=== PATIENT | female | born 1970 | race Caucasian/White ===

== ENCOUNTER 2017-01-20 08:15 | Emergency (ER) | payer MEDICAID ==
--- NOTE | 2017-01-20 08:39 | EDM.PDOC ---
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 Patient had a cold last week and noted having facial pain 2 days ago and nasal drainage that is purulent and intermittently bloody. she frequently gets sinusitis secondary to URIs. She denies any fevers, chills, shortness of breath or difficulty swallowing. Review of systems: As per history of present illness and below otherwise all systems reviewed and negative. Past medical history: As per history of present illness and as reviewed below otherwise noncontributory. Surgical history: As per history of present illness and as reviewed below otherwise noncontributory. Social history: No reported history of drug or alcohol abuse. Family history: As per history of present illness and as reviewed below otherwise noncontributory. Physical exam: General: Well developed, well nourished in NAD HEENT: Atraumatic, normocephalic, pupils reactive, negative for conjunctival pallor or scleral icterus, mucous membranes moist, throat clear, neck supple, nontender, trachea midline. Lungs: Clear to auscultation, breath sounds equal bilaterally, chest nontender. Heart: S1S2, regular, negative for clicks, rubs, or JVD. Abdomen: Soft, nondistended, nontender. Negative for masses or hepatosplenomegaly. Negative for costovertebral tenderness. Pelvis: Stable nontender. Genitourinary: Deferred. Rectal: Deferred. Extremities: Atraumatic, negative for cords or calf pain. Neurovascular unremarkable. Neuro: Awake, alert, oriented. Cranial nerves II through XII unremarkable. Cerebellum unremarkable. Motor and sensory unremarkable throughout. Exam nonfocal. Diagnostics: [] Therapeutics: [] Toradol given in the ED, first dose of Zithromax as pharmacies are closed today and first dose of prednisone given Impression: [] Acute sinusitis Plan: [] Motrin for pain, Zithromax one a day for 4 more days starting tomorrow and Medrol Dosepak instructed. Definitive disposition and diagnosis as appropriate pending reevaluation and review of above. - Related Data Allergies/ADRs: Allergies Allergy/AdvReac Type Severity Reaction Status Date / Time Iodinated Contrast Media - Allergy Anaphylactic Verified 06/25/16 14:55 Oral and Shock [Iodinated Contrast Media - IV Dye] iodine Allergy Anaphylactic Verified 06/25/16 14:55 Shock Iodine and Iodide Containing Allergy Anaphylactic Verified 06/25/16 14:55 Produc Shock Penicillins Allergy Anaphylactic Verified 06/25/16 14:55 Shock Sulfa (Sulfonamide Allergy Anaphylactic Verified 06/25/16 14:55 Antibiotics) Shock tetracycline [Tetracycline] Allergy Nausea and Verified 06/25/16 14:55 Vomiting Home Meds: Home Meds ClonazePAM [KlonoPIN] 1 mg PO TID 01/13/16 [History] Diltiazem HCl [Diltiazem 24Hr ER] 300 mg PO DAILY 05/20/16 [History] Azithromycin [Zithromax] 250 mg PO DAILY #4 tablet 01/20/17 [Rx] Fluticasone Propionate [Flonase] 1 spray NASBOTH DAILY 01/20/17 [History] methylPREDNISolone [Medrol] 4 mg PO ASDIRECTED #1 dosepk 01/20/17 [Rx] Past Medical History HEENT History: Reports: None Cardiovascular History: Reports: Hypertension, Other (see below) Other Cardiovascular History: svt Respiratory History: Reports: Asthma Gastrointestinal History: Reports: None Genitourinary History: Reports: None 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: Musculoskeletal History: Reports: None Neurological History: Reports: Seizure Psychiatric History: Reports: PTSD, Other (see below) Other Psychiatric History: history of alcoholism Endocrine/Metabolic History: Reports: None Hematologic History: Reports: None Immunologic History: Reports: None Oncologic (Cancer) History: Reports: Bone, Other (see below) 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 Dermatologic History: Reports: None - Infectious Disease History Infectious Disease History: Reports: Chicken pox - Past Surgical History Head Surgeries/Procedures: Reports: None HEENT Surgical History: Reports: Other (see below) Other HEENT Surgeries/Procedures: cancer to jaw Musculoskeletal Surgical History: Reports: Other (see below) Other Musculoskeletal Surgeries/Procedures:: Jaw dissection r/t jaw CA Social & Family History - Family History Family Medical History: Noncontributory - Tobacco Use Smoking Status *Q: Never Smoker Years of Tobacco use: 5 Used Tobacco, but Quit: No Second Hand Smoke Exposure: No - Caffeine Use Caffeine Use: Reports: Coffee, Soda - Alcohol Use Days Per Week of Alcohol Use: 7 Number of Drinks Per Day: 5 Total Drinks Per Week: 35 - Recreational Drug Use Recreational Drug Use: No Drug Use in Last 12 Months: No Recreational Drug Type: Reports: Cocaine, Methamphetamine ED ROS ENT - Review of Systems Review Of Systems: See Below (See history of present illness) ED EXAM, ENT - Physical Exam Exam: See Below (See history of present illness) Course - Vital Signs Last Recorded V/S: Last Vital Signs Temp 36.6 C 01/20/17 09:09 Pulse 77 01/20/17 09:09 Resp 16 01/20/17 09:09 BP 134/82 01/20/17 09:09 Pulse Ox 99 01/20/17 09:09 - Orders/Labs/Meds Meds: Medications Discontinued Medications Generic Name Dose Route Start Last Admin Trade Name Freq PRN Reason Stop Dose Admin Azithromycin 500 mg 01/20/17 08:48 01/20/17 09:05 Zithromax PO 01/20/17 08:49 500 mg ONETIME ONE Administration Ketorolac Tromethamine 30 mg 01/20/17 08:47 01/20/17 09:05 Toradol IM 01/20/17 08:48 30 mg ONETIME ONE Administration Prednisone 60 mg 01/20/17 08:47 01/20/17 09:05 Prednisone PO 01/20/17 08:48 60 mg ONETIME ONE Administration Departure - Departure Time of Disposition: 08:54 Disposition: Home, Self-Care 01 Condition: good Clinical Impression: Acute sinusitis Qualifiers: Sinusitis location: maxillary Recurrence: recurrent Qualified Code(s): J01.01 - Acute recurrent maxillary sinusitis Prescriptions: Azithromycin [Zithromax] 250 mg PO DAILY #4 tablet methylPREDNISolone [Medrol] 4 mg PO ASDIRECTED #1 dosepk Instructions: Sinusitis, Adult, [id number] Referrals: Justice Curtis MD [Primary Care Provider] - Forms: ED Department Discharge Additional Instructions: The following information is given to patients seen in the emergency department who are being discharged to home. This information is to outline your options for follow-up care. We provide all patients seen in our emergency department with a follow-up referral. The need for follow-up, as well as the timing and circumstances, are variable depending upon the specifics of your emergency department visit. If you don't have a primary care physician on staff, we will provide you with a referral. We always advise you to contact your personal physician following an emergency department visit to inform them of the circumstance of the visit and for follow-up with them and/or the need for any referrals to a consulting specialist. The emergency department will also refer you to a specialist when appropriate. This referral assures that you have the opportunity for follow-up care with a specialist. All of these measure are taken in an effort to provide you with optimal care, which includes your follow-up. Under all circumstances we always encourage you to contact your private physician who remains a resource for coordinating your care. When calling for follow-up care, please make the office aware that this follow-up is from your recent emergency room visit. If for any reason you are refused follow-up, please contact the [facility] Emergency Department at and asked to speak to the emergency department charge nurse. Amarjit Evans Motrin as directed. Followup with Dr. Sutton [facility] ENT [address] [place] [id number]
[2017-01-20] MEDS ORDERED: Ketorolac 30 MG/ML SDV IM ONE (08:47)
[2017-01-20] MEDS ORDERED: predniSONE 20 MG Tab PO ONE (08:47)
[2017-01-20] MEDS ORDERED: Azithromycin 250 MG Tab PO ONE (08:48)
[2017-01-20 09:10] VITALS: BP 134/82
== END 2017-01-20 09:21 | disposition home or self-care (01) ==
LOC: MW.ED 08:15
DX: J01.01 Acute recurrent maxillary sinusitis (principal); I10 Essential (primary) hypertension; J45.909 Unspecified asthma, uncomplicated; Z88.0 Allergy status to penicillin; Z88.2 Allergy status to sulfonamides; Z88.8 Allergy status to other drugs, medicaments and biological substances; Z79.899 Other long term (current) drug therapy; Z91.041 Radiographic dye allergy status
CPT/HCPCS: 96372; 99282; A9270; J1885; 99283

== ENCOUNTER 2017-04-12 05:45 | Emergency (ER) | payer MEDICAID ==
--- NOTE | 2017-04-12 06:00 | EDM.PDOC ---
ED HPI GENERAL MEDICAL PROBLEM - General Chief Complaint: Respiratory Problem Stated Complaint: LINGERING DEEP COUGH AND COLD Time Seen by Provider: 04/12/17 05:57 - History of Present Illness INITIAL COMMENTS - FREE TEXT/NARRATIVE: HISTORY AND PHYSICAL: History of present illness: Patient is 46-year-old female presents with a concern of cough she states she had cold symptoms were last week or 2 and if her cough is gone somewhat progressively worse is been no fever chills nausea vomiting or other complaints her children have had a similar illness recently Review of systems: As per history of present illness and below otherwise all systems reviewed and negative. Past medical history: As per history of present illness and as reviewed below otherwise noncontributory. Surgical history: As per history of present illness and as reviewed below otherwise noncontributory. Social history: No reported history of drug or alcohol abuse. Family history: As per history of present illness and as reviewed below otherwise noncontributory. Physical exam: HEENT: Atraumatic, normocephalic, pupils reactive, negative for conjunctival pallor or scleral icterus, mucous membranes moist, throat clear, neck supple, nontender, trachea midline. Lungs: Clear to auscultation, breath sounds equal bilaterally, chest nontender. Heart: S1S2, regular, negative for clicks, rubs, or JVD. Abdomen: Soft, nondistended, nontender. Negative for masses or hepatosplenomegaly. Negative for costovertebral tenderness. Pelvis: Stable nontender. Genitourinary: Deferred. Rectal: Deferred. Extremities: Atraumatic, negative for cords or calf pain. Neurovascular unremarkable. Neuro: Awake, alert, oriented. Cranial nerves II through XII unremarkable. Cerebellum unremarkable. Motor and sensory unremarkable throughout. Exam nonfocal. Diagnostics: Chest x-ray CBC CMP Therapeutics: None Impression: #1 pneumonitis Definitive disposition and diagnosis as appropriate pending reevaluation and review of above. throat Pain Score (Numeric/FACES): 5 - Related Data Allergies Allergy/AdvReac Type Severity Reaction Status Date / Time Iodinated Contrast- Oral and Allergy Anaphylactic Verified 04/12/17 05:51 IV Dye Shock [Iodinated Contrast Media - IV Dye] iodine Allergy Anaphylactic Verified 04/12/17 05:51 Shock Iodine and Iodide Containing Allergy Anaphylactic Verified 04/12/17 05:51 Produc Shock Penicillins Allergy Anaphylactic Verified 04/12/17 05:51 Shock Sulfa (Sulfonamide Allergy Anaphylactic Verified 04/12/17 05:51 Antibiotics) Shock tetracycline [Tetracycline] Allergy Nausea and Verified 04/12/17 05:51 Vomiting Home Meds: Home Meds ClonazePAM [KlonoPIN] 1 mg PO TID 01/13/16 [History] Diltiazem HCl [Diltiazem 24Hr ER] 300 mg PO DAILY 05/20/16 [History] Azithromycin [Zithromax] 250 mg PO DAILY #4 tablet 01/20/17 [Rx] Fluticasone Propionate [Flonase] 1 spray NASBOTH DAILY 01/20/17 [History] methylPREDNISolone [Medrol] 4 mg PO ASDIRECTED #1 dosepk 01/20/17 [Rx] Past Medical History HEENT History: Reports: None Cardiovascular History: Reports: Hypertension, Other (See Below) Other Cardiovascular History: svt Respiratory History: Reports: Asthma Gastrointestinal History: Reports: None Genitourinary History: Reports: None 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: Musculoskeletal History: Reports: None Neurological History: Reports: Seizure Psychiatric History: Reports: PTSD, Other (See Below) Other Psychiatric History: history of alcoholism Endocrine/Metabolic History: Reports: None Hematologic History: Reports: None Immunologic History: Reports: None Oncologic (Cancer) History: Reports: Bone, Other (See Below) 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 Dermatologic History: Reports: None - Infectious Disease History Infectious Disease History: Reports: Chicken Pox - Past Surgical History HEENT Surgical History: Reports: Other (See Below) Musculoskeletal Surgical History: Reports: Other (See Below) Social & Family History - Family History Family Medical History: Noncontributory - Tobacco Use Smoking Status *Q: Never Smoker Years of Tobacco use: 5 Used Tobacco, but Quit: No Second Hand Smoke Exposure: No - Caffeine Use Caffeine Use: Reports: Coffee, Soda - Alcohol Use Days Per Week of Alcohol Use: 7 Number of Drinks Per Day: 5 Total Drinks Per Week: 35 - Recreational Drug Use Recreational Drug Use: No Drug Use in Last 12 Months: No Recreational Drug Type: Reports: Cocaine, Methamphetamine ED ROS GENERAL - Review of Systems Review Of Systems: ROS reveals no pertinent complaints other than HPI. ED EXAM, GENERAL - Physical Exam Exam: See Below (See dictation) Course - Vital Signs Last Recorded V/S: Last Vital Signs Temp 36 C 07/07/17 05:51 Pulse 80 04/12/17 05:51 Resp 18 04/12/17 05:51 BP 131/78 04/12/17 05:51 Pulse Ox 98 04/12/17 05:51 - Orders/Labs/Meds Orders: Active Orders 24 hr Category Date Time Status Chest 2V [CR] Stat Exams 04/12/17 05:54 Ordered CBC WITH AUTO DIFF [HEME] Stat Lab 04/12/17 05:54 Ordered COMPREHENSIVE METABOLIC PN,CMP [CHEM] Stat Lab 04/12/17 05:54 Ordered Departure - Departure Time of Disposition: 05:59 Disposition: Home, Self-Care 01 Condition: Good Clinical Impression: Pneumonitis - Discharge Information Forms: ED Department Discharge Additional Instructions: The following information is given to patients seen in the emergency department who are being discharged to home. This information is to outline your options for follow-up care. We provide all patients seen in our emergency department with a follow-up referral. The need for follow-up, as well as the timing and circumstances, are variable depending upon the specifics of your emergency department visit. If you don't have a primary care physician on staff, we will provide you with a referral. We always advise you to contact your personal physician following an emergency department visit to inform them of the circumstance of the visit and for follow-up with them and/or the need for any referrals to a consulting specialist. The emergency department will also refer you to a specialist when appropriate. This referral assures that you have the opportunity for followup care with a specialist. All of these measure are taken in an effort to provide you with optimal care, which includes your followup. Under all circumstances we always encourage you to contact your private physician who remains a resource for coordinating your care. When calling for followup care, please make the office aware that this follow-up is from your recent emergency room visit. If for any reason you are refused follow-up, please contact the [facility] emergency department at and asked to speak to the emergency department charge nurse. Medrol albuterol as directed follow primary medical doctor 1-2 days return as needed as discussed - My Orders Last 24 Hours: My Active Orders 04/12/17 05:54 Chest 2V [CR] Stat CBC WITH AUTO DIFF [HEME] Stat COMPREHENSIVE METABOLIC PN,CMP [CHEM] Stat - Assessment/Plan Last 24 Hours: My Active Orders 04/12/17 05:54 Chest 2V [CR] Stat CBC WITH AUTO DIFF [HEME] Stat COMPREHENSIVE METABOLIC PN,CMP [CHEM] Stat
[2017-04-12 06:28] LABS: CHLORIDE,CL 106 mmol/L (98-110); SODIUM,NA 137 mmol/L (136-146)
[2017-04-12 06:49] VITALS: BP 128/65
--- NOTE | 2017-04-12 16:55 | CR ---
EXAM DATE: 04/12/17 PATIENT'S AGE: 46 Patient: ALEX WHITLOCK Facility: [place], [place] Site . Site : 1970 Study: XRay Chest [id number] 6:12:53 AM Ordering Physician: Doctor Armstrong Final Report: HISTORY: Cough. Technique: Two-view chest. Comparison: Chest x-ray 06/17/2016. Findings: No airspace consolidation. No pleural effusion or pneumothorax. Pulmonary vasculature and cardiomediastinal silhouette are within normal limits. Fixation hardware in the mandible. Impression: No acute findings. Dictated by Rebel Alvares MD @ Apr 12 2017 6:17AM (Electronic Signature) Report Signed by Proxy. YOAN
== END 2017-04-12 06:47 | disposition home or self-care (01) ==
LOC: MW.ED 05:45
DX: J18.9 Pneumonia, unspecified organism (principal); I10 Essential (primary) hypertension; J45.909 Unspecified asthma, uncomplicated; Z88.0 Allergy status to penicillin; Z88.2 Allergy status to sulfonamides; Z88.1 Allergy status to other antibiotic agents; Z91.041 Radiographic dye allergy status; Z79.899 Other long term (current) drug therapy
CPT/HCPCS: 36415; 71020; 71020-26; 80053; 85025; 99282; 99283

== ENCOUNTER 2017-06-20 09:30 | Emergency (ER) | payer MEDICAID ==
--- NOTE | 2017-06-20 09:54 | EDM.PDOC ---
<Ayla Elias - Last Filed: 06/20/17 09:59> ED HPI GENERAL MEDICAL PROBLEM - General Chief Complaint: ENT Problem Stated Complaint: SINUS INFECTION Time Seen by Provider: 06/20/17 09:54 Source of Information: Reports: Patient History Limitations: Reports: No Limitations - History of Present Illness INITIAL COMMENTS - FREE TEXT/NARRATIVE: HISTORY AND PHYSICAL: []46-year-old female presenting with facial congestion and discomfort History of Present Illness: []A month and a half ago patient had a cold and now is experiencing congestion to the sinuses. To the ethmoid area and the maxillary when she is pointing. Patient does have significant history of having glioblastoma and has been treated by our ENT specialist Dr. Sutton. She has improved with the use of Flonase. She has added Sudafed to this regimen with the smoke in the air and extra congestion from the cold. She has attempted to contact Dr. Sutton and Dr. Curtis and both are out of the office at this time. She does report to having had some nasal bleeding due to dryness. Review of Systems: As per history of present illness and below otherwise all systems reviewed and negative. Past medical history: As per history of present illness and as reviewed below otherwise noncontributory. Surgical history: As per history of present illness and as reviewed below otherwise noncontributory. Social history: No reported history of drug or alcohol abuse. Family history: As per history of present illness and as reviewed below otherwise noncontributory. Physical exam: Alert and oriented female answering questions appropriately she is nontoxic in appearance. Left portion of nasal septum with a abrasion no patti bleeding at this time. Exudate is noted posteriorly. Green creamy color. HEENT: Atraumatic, normocehpalic, pupils reactive, negative for conjunctival pallor or scleral icterus, mucous membranes moist, throat with some streaking of nasal pharyngeal exudate, neck supple, nontender, trachea midline. Exquisite tenderness noted with palpation to the maxillary area. Poor light reflex was noted. Tympanic membranes are dull. Lungs: Clear to auscultation, breath sounds equal bilaterally, chest non tender. Heart: S1S2, regular, negative for clicks, rubs, or JVD. Abdomen: Soft, nondistended, nontender. Negative for masses or hepatossplenmegaly. Negative for costovertebral tenderness. Pelvis: Stable nontender. Genitourinary: Deferred. Rectal: Deferred Extremities: Atraumatic, negative for cords or calf pain. Neurovascular unremarkable. Neuro: Awake, alert, oriented. Cranial nerves II through XII unremarkable. Cerebellum unremarkable. Motor and sensory unremarkable throughout. Exam nonfocal. Diagnostics: [] Therapeutics: [Toradol 60 IM] Impression: [Maxillary sinusitis History of glioblastoma] Plan: [Toradol 60 mg IM for her discomfort Prescriptions: Medrol Dosepak reduce edema Azithromycin as attempt to hit atypical type of bacteria that may be present Would recommend [id number] mixture of some bacitracin ointment and Mentholatum gently maneuvered into the nasal passages with a Q-tip] Definitive disposition and diagnosis as appropriate pending reevaluation and review of above. Onset: Gradual Duration: Week(s):, Getting Worse Location: Reports: Face Quality: Reports: Ache Severity: Moderate Improves with: Reports: None Bilateral Face Pain Score (Numeric/FACES): 8 - Related Data Allergies Allergy/AdvReac Type Severity Reaction Status Date / Time Iodinated Contrast- Oral and Allergy Anaphylactic Verified 06/20/17 09:44 IV Dye Shock [Iodinated Contrast Media - IV Dye] iodine Allergy Anaphylactic Verified 06/20/17 09:44 Shock Iodine and Iodide Containing Allergy Anaphylactic Verified 06/20/17 09:44 Produc Shock Penicillins Allergy Anaphylactic Verified 06/20/17 09:44 Shock Sulfa (Sulfonamide Allergy Anaphylactic Verified 06/20/17 09:44 Antibiotics) Shock tetracycline [Tetracycline] Allergy Nausea and Verified 06/20/17 09:44 Vomiting Home Meds: Home Meds ClonazePAM [KlonoPIN] 1 mg PO TID 01/13/16 [History] Diltiazem HCl [Diltiazem 24Hr ER] 300 mg PO DAILY 05/20/16 [History] Fluticasone Propionate [Flonase] 1 spray NASBOTH DAILY 01/20/17 [History] Azithromycin [Zithromax] 250 mg PO DAILY #6 tablet 06/20/17 [Rx] Cetirizine [ZyrTEC] 10 mg PO BEDTIME 06/20/17 [History] methylPREDNISolone [Medrol] 4 mg PO ASDIRECTED #1 dosepk 06/20/17 [Rx] Past Medical History HEENT History: Reports: None Cardiovascular History: Reports: Hypertension, Other (See Below) Other Cardiovascular History: svt Respiratory History: Reports: Asthma Gastrointestinal History: Reports: None Genitourinary History: Reports: None 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: Musculoskeletal History: Reports: None Neurological History: Reports: Seizure Psychiatric History: Reports: PTSD, Other (See Below) Other Psychiatric History: history of alcoholism Endocrine/Metabolic History: Reports: None Hematologic History: Reports: None Immunologic History: Reports: None Oncologic (Cancer) History: Reports: Bone, Other (See Below) 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 Dermatologic History: Reports: None - Infectious Disease History Infectious Disease History: Reports: Chicken Pox - Past Surgical History Head Surgeries/Procedures: Reports: None Other HEENT Surgeries/Procedures: surgery to jaw area Female Surgical History: Reports: Breast Implant Musculoskeletal Surgical History: Reports: Other (See Below) Social & Family History - Family History Family Medical History: Noncontributory - Tobacco Use Smoking Status *Q: Never Smoker Years of Tobacco use: 5 Used Tobacco, but Quit: No Second Hand Smoke Exposure: No - Caffeine Use Caffeine Use: Reports: Energy Drinks, Soda - Alcohol Use Days Per Week of Alcohol Use: 7 Number of Drinks Per Day: 5 Total Drinks Per Week: 35 - Recreational Drug Use Recreational Drug Use: No Drug Use in Last 12 Months: No Recreational Drug Type: Reports: Cocaine, Methamphetamine ED ROS ENT - Review of Systems Review Of Systems: ROS reveals no pertinent complaints other than HPI. ED EXAM, ENT - Physical Exam Exam: See Below (See dictation) Course - Vital Signs Last Recorded V/S: Last Vital Signs Temp 36.6 C 06/20/17 09:40 Pulse 94 06/20/17 10:30 Resp 16 06/20/17 10:30 BP 150/76 H 06/20/17 10:30 Pulse Ox 98 06/20/17 10:30 - Orders/Labs/Meds Meds: Medications Discontinued Medications Generic Name Dose Route Start Last Admin Trade Name Igleisaq PRN Reason Stop Dose Admin Ketorolac Tromethamine 60 mg 06/20/17 09:59 06/20/17 10:11 Toradol IM 06/20/17 10:00 60 mg ONETIME ONE Administration Departure - Departure Time of Disposition: 10:07 Disposition: Home, Self-Care 01 Condition: Good Clinical Impression: Acute sinusitis Qualifiers: Sinusitis location: maxillary Recurrence: recurrent Qualified Code(s): J01.01 - Acute recurrent maxillary sinusitis - Discharge Information Prescriptions: Azithromycin [Zithromax] 250 mg PO DAILY #6 tablet methylPREDNISolone [Medrol] 4 mg PO ASDIRECTED #1 dosepk Instructions: Sinusitis, Adult, [id number] Referrals: Justice Curtis MD [Primary Care Provider] - Forms: ED Department Discharge Additional Instructions: The following information is given to patients seen in the emergency department who are being discharged to home. This information is to outline your options for follow-up care. We provide all patients seen in our emergency department with a follow-up referral. The need for follow-up, as well as the timing and circumstances, are variable depending upon the specifics of your emergency department visit. If you don't have a primary care physician on staff, we will provide you with a referral. We always advise you to contact your personal physician following an emergency department visit to inform them of the circumstance of the visit and for follow-up with them and/or the need for any referrals to a consulting specialist. The emergency department will also refer you to a specialist when appropriate. This referral assures that you have the opportunity for followup care with a specialist. All of these measure are taken in an effort to provide you with optimal care, which includes your followup. Under all circumstances we always encourage you to contact your private physician who remains a resource for coordinating your care. When calling for followup care, please make the office aware that this follow-up is from your recent emergency room visit. If for any reason you are refused follow-up, please contact the [facility] emergency department at and asked to speak to the emergency department charge nurse. You were given Toradol while in the emergency department for your discomfort Prescription of Medrol dose pack for anti-inflammatory effects to reduce the congestion Prescription of Zithromax for 5 days Please follow-up with your primary care provider or with Dr. Sutton <Barb Merchant - Last Filed: 06/20/17 10:47> ED HPI GENERAL MEDICAL PROBLEM - History of Present Illness INITIAL COMMENTS - FREE TEXT/NARRATIVE: Please add to history of present illness that the patient is in remission after being treated for her glioblastoma years ago
[2017-06-20] MEDS ORDERED: Ketorolac 60 MG/2 ML SDV IM ONE (09:59)
[2017-06-20 10:40] VITALS: BP 150/76
== END 2017-06-20 10:30 | disposition home or self-care (01) ==
LOC: MW.ED 09:30
DX: J01.01 Acute recurrent maxillary sinusitis (principal); I10 Essential (primary) hypertension; J45.909 Unspecified asthma, uncomplicated; Z91.041 Radiographic dye allergy status; Z88.0 Allergy status to penicillin; Z88.2 Allergy status to sulfonamides; Z88.1 Allergy status to other antibiotic agents; Z79.899 Other long term (current) drug therapy
CPT/HCPCS: 96372; 99283; J1885

== ENCOUNTER 2017-09-04 12:02 | Emergency (ER) | payer MEDICAID ==
[2017-09-04] MEDS ORDERED: Ketorolac 60 MG/2 ML SDV IM ONE (12:28)
--- NOTE | 2017-09-04 12:29 | EDM.PDOC ---
ED HPI GENERAL MEDICAL PROBLEM - General Chief Complaint: ENT Problem Stated Complaint: SICK Time Seen by Provider: 09/04/17 12:04 Source of Information: Reports: Patient History Limitations: Reports: No Limitations - History of Present Illness INITIAL COMMENTS - FREE TEXT/NARRATIVE: HISTORY AND PHYSICAL: History of present illness: Patient is a 46-year-old female who presents to the emergency room with complaints of "sinus infection" x5 days. Reports she has had copious amounts of nasal drainage coming from both her nose and down the back of her throat. Maxillary sinus pressure and tenderness with palpation. 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 States she normally has a prescription for Z-Rogelio, Medrol Dosepak and usually feels better. She tried to get into her primary care provider but is unable to see Dr. Curtis for another 2 weeks. Denies any fever or chills. Denies any chest pain, shortness of breath. States she also uses an albuterol rescue inhaler, which she is currently out of. She is requesting a refill she does intermittently have some "asthma flareups". Review of systems: As per history of present illness and below otherwise all systems reviewed and negative. Past medical history: As per history of present illness and as reviewed below otherwise noncontributory. Surgical history: As per history of present illness and as reviewed below otherwise noncontributory. Social history: No reported history of drug or alcohol abuse. Family history: As per history of present illness and as reviewed below otherwise noncontributory. Physical exam: Gen.: Well-developed and well-nourished 46-year-old female. Appears in no acute distress and is nontoxic appearing. Alert and oriented. HEENT: Atraumatic, normocephalic, pupils reactive, negative for conjunctival pallor or scleral icterus, mucous membranes tacky (this is normal for the patient and she states that her salivary glands removed with her previous cancer history), tenderness to the maxillary sinuses bilaterally, throat clear, neck supple, nontender, trachea midline. Patient has a normal variance of a sphincter lower jaw due to bone removal and soft tissue removal related to previous cancer. Lungs: Clear to auscultation, breath sounds equal bilaterally, chest nontender. Heart: S1S2, regular, negative for clicks, rubs, or JVD. Abdomen: Soft, nondistended, nontender. Negative for masses or hepatosplenomegaly. Negative for costovertebral tenderness. Pelvis: Stable nontender. Genitourinary: Deferred. Rectal: Deferred. Extremities: Atraumatic, moves all extremities per self, negative for cords or calf pain. Neurovascular unremarkable. Neuro: Awake, alert, oriented. Cranial nerves II through XII unremarkable. Cerebellum unremarkable. Motor and sensory unremarkable throughout. Exam nonfocal. As the patient has multiple antibiotic allergies she states that Z-rogelio work best for her. She does complain of a dry nonproductive cough. I did offer her a chest x-ray to assess for a pneumonia, although her lung sounds are clear and she is afebrile. Will cover her with a Z-Rogelio and this should also cover any atypical pneumonia that may be present. Prescription for Medrol Dosepak. One shot of Toradol IM, per patient request. Patient will follow up with her primary care provider as soon as she is able to get in for follow-up. Diagnostics: [] Therapeutics: Toradol Impression: Sinus infection Plan: 1. Please take the prescriptions as prescribed. 2. May use a cool mist humidifier at the bedside to help keep her nasal passages moist and open up the airway. 3. A refill of your albuterol rescue inhaler has been given to you. If your cough becomes worse please follow-up with your primary care provider or return to the emergency room as needed and as discussed. Definitive disposition and diagnosis as appropriate pending reevaluation and review of above. Duration: Day(s): (5) sinus/head Pain Score (Numeric/FACES): 7 - Related Data Allergies Allergy/AdvReac Type Severity Reaction Status Date / Time Iodinated Contrast- Oral and Allergy Anaphylactic Verified 09/04/17 12:18 IV Dye Shock [Iodinated Contrast Media - IV Dye] iodine Allergy Anaphylactic Verified 09/04/17 12:18 Shock Iodine and Iodide Containing Allergy Anaphylactic Verified 09/04/17 12:18 Produc Shock Penicillins Allergy Anaphylactic Verified 09/04/17 12:18 Shock Sulfa (Sulfonamide Allergy Anaphylactic Verified 09/04/17 12:18 Antibiotics) Shock tetracycline [Tetracycline] Allergy Nausea and Verified 09/04/17 12:18 Vomiting Home Meds: Home Meds ClonazePAM [KlonoPIN] 1 mg PO TID 01/13/16 [History] Diltiazem HCl [Diltiazem 24Hr ER] 300 mg PO DAILY 05/20/16 [History] Cetirizine [ZyrTEC] 10 mg PO BEDTIME 06/20/17 [History] diphenhydrAMINE [Benadryl] 50 mg PO DAILY 09/04/17 [History] Past Medical History HEENT History: Reports: None Cardiovascular History: Reports: Hypertension, Other (See Below) Other Cardiovascular History: svt Respiratory History: Reports: Asthma Gastrointestinal History: Reports: None Genitourinary History: Reports: None [employer]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: Musculoskeletal History: Reports: None Neurological History: Reports: Seizure Psychiatric History: Reports: PTSD, Other (See Below) Other Psychiatric History: history of alcoholism Endocrine/Metabolic History: Reports: None Hematologic History: Reports: None Immunologic History: Reports: None Oncologic (Cancer) History: Reports: Bone, Other (See Below) 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 Dermatologic History: Reports: None - Infectious Disease History Infectious Disease History: Reports: Chicken Pox - Past Surgical History Head Surgeries/Procedures: Reports: None Other HEENT Surgeries/Procedures: surgery to jaw area Female Surgical History: Reports: Breast Implant Musculoskeletal Surgical History: Reports: Other (See Below) Social & Family History - Family History Family Medical History: Noncontributory - Tobacco Use Smoking Status *Q: Never Smoker Years of Tobacco use: 5 Used Tobacco, but Quit: No Second Hand Smoke Exposure: No - Caffeine Use Caffeine Use: Reports: Energy Drinks, Soda - Alcohol Use Days Per Week of Alcohol Use: 7 Number of Drinks Per Day: 5 Total Drinks Per Week: 35 - Recreational Drug Use Recreational Drug Use: No Drug Use in Last 12 Months: No Recreational Drug Type: Reports: Cocaine, Methamphetamine ED ROS ENT - Review of Systems Review Of Systems: ROS reveals no pertinent complaints other than HPI. ED EXAM, ENT - Physical Exam Exam: See Below (See dictation) Course - Vital Signs Last Recorded V/S: Last Vital Signs Temp 36.6 C 09/04/17 12:12 Pulse 88 09/04/17 12:12 Resp 18 09/04/17 12:12 BP 145/85 H 09/04/17 12:12 Pulse Ox 98 09/04/17 12:12 - Orders/Labs/Meds Meds: Medications Discontinued Medications Generic Name Dose Route Start Last Admin Trade Name Len PRN Reason Stop Dose Admin Ketorolac Tromethamine 60 mg 09/04/17 12:28 Toradol IM 09/04/17 12:29 ONETIME ONE Departure - Departure Time of Disposition: 12:38 Disposition: Home, Self-Care 01 Clinical Impression: Sinusitis Qualifiers: Sinusitis location: maxillary Chronicity: acute Recurrence: recurrent Qualified Code(s): J01.01 - Acute recurrent maxillary sinusitis - Discharge Information Referrals: Justice Curtis MD [Primary Care Provider] - Forms: ED Department Discharge Additional Instructions: My general discharge The following information is given to patients seen in the emergency department who are being discharged to home. This information is to outline your options for follow-up care. We provide all patients seen in our emergency department with a follow-up referral. The need for follow-up, as well as the timing and circumstances, are variable depending upon the specifics of your emergency department visit. If you don't have a primary care physician on staff, we will provide you with a referral. We always advise you to contact your personal physician following an emergency department visit to inform them of the circumstance of the visit and for follow-up with them and/or the need for any referrals to a consulting specialist. The emergency department will also refer you to a specialist when appropriate. This referral assures that you have the opportunity for follow-up care with a specialist. All of these measure are taken in an effort to provide you with optimal care, which includes your follow-up. Under all circumstances we always encourage you to contact your private physician who remains a resource for coordinating your care. When calling for follow-up care, please make the office aware that this follow-up is from your recent emergency room visit. If for any reason you are refused follow-up, please contact the [facility] Emergency Department at and asked to speak to the emergency department charge nurse. [address] [address] 1. Please take the prescriptions as prescribed. 2. May use a cool mist humidifier at the bedside to help keep her nasal passages moist and open up the airway. 3. A refill of your albuterol rescue inhaler has been given to you. If your cough becomes worse please follow-up with your primary care provider or return to the emergency room as needed and as discussed.
[2017-09-04 12:57] VITALS: BP 138/88
== END 2017-09-04 12:50 | disposition home or self-care (01) ==
LOC: MW.ED 12:02
DX: J01.01 Acute recurrent maxillary sinusitis (principal); I10 Essential (primary) hypertension; Z88.0 Allergy status to penicillin; Z88.2 Allergy status to sulfonamides; Z88.1 Allergy status to other antibiotic agents; Z79.899 Other long term (current) drug therapy
CPT/HCPCS: 96372; 99283; J1885

== ENCOUNTER 2018-01-18 16:55 | Emergency (ER) | payer MEDICAID ==
[2018-01-18] MEDS ORDERED: Sodium Chloride 0.9% 1,000 ML IV ONE (17:04)
[2018-01-18] MEDS ORDERED: Aspirin 81 MG Tab.Chew PO ONE (17:04)
[2018-01-18] MEDS ORDERED: LORazepam 2 MG/ML SDV IVPUSH ONE (17:09)
[2018-01-18 17:48] LABS: CHLORIDE,CL 93 mmol/L (98-107); SODIUM,NA 134 mmol/L (136-145)
--- NOTE | 2018-01-18 18:36 | EDM.PDOC ---
ED HPI GENERAL MEDICAL PROBLEM - General Chief Complaint: Cardiovascular Problem Stated Complaint: CHEST PAIN Time Seen by Provider: 01/18/18 18:31 Source of Information: Reports: Patient - History of Present Illness INITIAL COMMENTS - FREE TEXT/NARRATIVE: HISTORY AND PHYSICAL: History of present illness: [Patient presents via EMS Patient has history of SVT she felt as if she is having palpitations and appears quite anxious on arrival vitals are completely normal and stable heart rate 100-104 she admits to drinking a box of wine last night at states she has been sober over the last year no current fever nausea vomiting chills sweats no chest pain shortness breath headache dizziness or palpitation no bowel or urine symptoms ] Review of systems: As per history of present illness and below otherwise all systems reviewed and negative. Past medical history: As per history of present illness and as reviewed below otherwise noncontributory. Surgical history: As per history of present illness and as reviewed below otherwise noncontributory. Social history: No reported history of drug or alcohol abuse. Family history: As per history of present illness and as reviewed below otherwise noncontributory. Physical exam: HEENT: Atraumatic, normocephalic, pupils reactive, negative for conjunctival pallor or scleral icterus, mucous membranes moist, throat clear, neck supple, nontender, trachea midline. Lungs: Clear to auscultation, breath sounds equal bilaterally, chest nontender. Heart: S1S2, regular, negative for clicks, rubs, or JVD. Abdomen: Soft, nondistended, nontender. Negative for masses or hepatosplenomegaly. Negative for costovertebral tenderness. Pelvis: Stable nontender. Genitourinary: Deferred. Rectal: Deferred. Extremities: Atraumatic, negative for cords or calf pain. Neurovascular unremarkable. Neuro: Awake, alert, oriented. Cranial nerves II through XII unremarkable. Cerebellum unremarkable. Motor and sensory unremarkable throughout. Exam nonfocal. Diagnostics: [CBC CMP UA cardiac enzymes EKG Chest 1 view ] Therapeutics: [ 1 L normal saline bolus aspirin 324 mg chewable Ativan 0.5 mg IV ] At of oral Ativan 1 mg by mouth twice a day #10 no refill Impression: [ anxiety about health No SVT Mild dehydration Alcohol use abuse ] Definitive disposition and diagnosis as appropriate pending reevaluation and review of above. Chest Pain Score (Numeric/FACES): 3 - Related Data Allergies Allergy/AdvReac Type Severity Reaction Status Date / Time Iodinated Contrast- Oral and Allergy Anaphylactic Verified 01/18/18 17:09 IV Dye Shock [Iodinated Contrast Media - IV Dye] iodine Allergy Anaphylactic Verified 01/18/18 17:09 Shock Iodine and Iodide Containing Allergy Anaphylactic Verified 01/18/18 17:09 Produc Shock Penicillins Allergy Anaphylactic Verified 01/18/18 17:09 Shock Sulfa (Sulfonamide Allergy Anaphylactic Verified 01/18/18 17:09 Antibiotics) Shock tetracycline [Tetracycline] Allergy Nausea and Verified 01/18/18 17:09 Vomiting Home Meds: Home Meds ClonazePAM [KlonoPIN] 1 mg PO TID 01/13/16 [History] Diltiazem HCl [Diltiazem 24Hr ER] 300 mg PO DAILY 05/20/16 [History] Cetirizine [ZyrTEC] 10 mg PO BEDTIME 06/20/17 [History] diphenhydrAMINE [Benadryl] 50 mg PO DAILY 09/04/17 [History] Past Medical History HEENT History: Reports: None Cardiovascular History: Reports: Hypertension, Other (See Below) Other Cardiovascular History: svt Respiratory History: Reports: Asthma Gastrointestinal History: Reports: None Genitourinary History: Reports: None HOME ADVISOR History: Reports: Musculoskeletal History: Reports: None Neurological History: Reports: Seizure Psychiatric History: Reports: PTSD, Other (See Below) Other Psychiatric History: history of alcoholism Endocrine/Metabolic History: Reports: None Hematologic History: Reports: None Immunologic History: Reports: None Oncologic (Cancer) History: Reports: Bone, Other (See Below) 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 Dermatologic History: Reports: None - Infectious Disease History Infectious Disease History: Reports: Chicken Pox - Past Surgical History Head Surgeries/Procedures: Reports: None Other HEENT Surgeries/Procedures: surgery to jaw area Female Surgical History: Reports: Breast Implant Musculoskeletal Surgical History: Reports: Other (See Below) Social & Family History - Family History Family Medical History: Noncontributory Oncologic: Reports: Brain - Tobacco Use Smoking Status *Q: Never Smoker Years of Tobacco use: 5 Used Tobacco, but Quit: No Second Hand Smoke Exposure: No - Caffeine Use Caffeine Use: Reports: Energy Drinks, Soda - Alcohol Use Days Per Week of Alcohol Use: 7 Number of Drinks Per Day: 5 Total Drinks Per Week: 35 - Recreational Drug Use Recreational Drug Use: No Drug Use in Last 12 Months: No Recreational Drug Type: Reports: Cocaine, Methamphetamine ED ROS GENERAL - Review of Systems Review Of Systems: ROS reveals no pertinent complaints other than HPI. ED EXAM, GENERAL - Physical Exam Exam: See Below Course - Vital Signs Last Recorded V/S: Last Vital Signs Temp 97.4 F 01/18/18 17:05 Pulse 98 01/18/18 18:23 Resp 18 01/18/18 18:23 BP 136/77 01/18/18 18:23 Pulse Ox 97 01/18/18 18:23 - Orders/Labs/Meds Orders: Active Orders 24 hr Category Date Time Status EKG Documentation Completion [RC] STAT Care 01/18/18 17:05 Active Chest 1V Frontal [CR] Stat Exams 01/18/18 17:05 Taken UA W/MICROSCOPIC [URIN] Stat Lab 01/18/18 17:51 Ordered Labs: Laboratory Tests 01/18/18 01/18/18 01/18/18 Range/Units 17:18 17:18 17:18 WBC 18.41 H (4.0-11.0) K/uL RBC 5.11 (4.30-5.90) M/uL Hgb 13.8 (12.0-16.0) g/dL Hct 40.5 (36.0-46.0) % MCV 79.3 L (80.0-98.0) fL MCH 27.0 (27.0-32.0) pg MCHC 34.1 (31.0-37.0) g/dL RDW Std Deviation 45.4 (28.0-62.0) fl RDW Coeff of Ana 16 H (11.0-15.0) % Plt Count 299 (150-400) K/uL MPV 8.80 (7.40-12.00) fL Neut % (Auto) 83.7 H (48.0-80.0) % Lymph % (Auto) 12.4 L (16.0-40.0) % Atlantic % (Auto) 3.5 (0.0-15.0) % Eos % (Auto) 0.1 (0.0-7.0) % Baso % (Auto) 0.3 (0.0-1.5) % Neut # (Auto) 15.4 H (1.4-5.7) K/uL Lymph # (Auto) 2.3 (0.6-2.4) K/uL Atlantic # (Auto) 0.6 (0.0-0.8) K/uL Eos # (Auto) 0.0 (0.0-0.7) K/uL Baso # (Auto) 0.1 (0.0-0.1) K/uL Nucleated RBC % 0.0 /100WBC Nucleated RBCs # 0 K/uL Sodium 134 L (136-145) mmol/L Potassium 4.8 (3.5-5.1) mmol/L Chloride 93 L (98-107) mmol/L Carbon Dioxide 25.1 (21.0-32.0) mmol/L BUN 21 H (7.0-18.0) mg/dL Creatinine 1.0 (0.6-1.0) mg/dL Est Cr Clr Drug Dosing 57.27 mL/min Estimated GFR (MDRD) 59.4 ml/min Glucose 125 H (74-106) mg/dL Calcium 9.7 (8.5-10.1) mg/dL Total Bilirubin 0.4 (0.2-1.0) mg/dL AST 27 (15-37) IU/L ALT 27 (14-63) IU/L Alkaline Phosphatase 70 (46-116) U/L Creatine Kinase 198 (26-308) U/L Troponin I < 0.050 (0.000-0.056) ng/mL Total Protein 8.7 H (6.4-8.2) g/dL Albumin 4.2 (3.4-5.0) g/dL Globulin 4.5 H (2.0-3.5) g/dL Albumin/Globulin Ratio 0.9 L (1.3-2.8) Lipase 93 (73-393) U/L Meds: Medications Discontinued Medications Generic Name Dose Route Start Last Admin Trade Name Freq PRN Reason Stop Dose Admin Aspirin 324 mg 01/18/18 17:04 01/18/18 17:16 Aspirin PO 01/18/18 17:05 324 mg ONETIME ONE Administration Sodium Chloride 1,000 mls @ 999 mls/hr 01/18/18 17:04 01/18/18 17:15 Normal Saline IV 04/14/18 18:04 999 mls/hr STAT ONE Administration Lorazepam 0.5 mg 01/18/18 17:09 01/18/18 17:16 Ativan IVPUSH 01/18/18 17:10 0.5 mg ONETIME ONE Administration Departure - Departure Time of Disposition: 18:36 Disposition: Home, Self-Care 01 Condition: Good Clinical Impression: Anxiety about health, Alcohol abuse Referrals: PCP,None [Primary Care Provider] - - My Orders Last 24 Hours: My Active Orders 01/18/18 17:05 EKG Documentation Completion [RC] STAT Chest 1V Frontal [CR] Stat 01/18/18 17:51 UA W/MICROSCOPIC [URIN] Stat - Assessment/Plan Last 24 Hours: My Active Orders 01/18/18 17:05 EKG Documentation Completion [RC] STAT Chest 1V Frontal [CR] Stat 01/18/18 17:51 UA W/MICROSCOPIC [URIN] Stat
[2018-01-19 05:02] VITALS: BP 139/77
--- NOTE | 2018-01-20 10:35 | CR ---
EXAM DATE: 01/18/18 PATIENT'S AGE: 47 Patient: ALEX WHITLOCK Facility: [place], [place] Site . Site : [id number] Study: XRay Chest [id number]/[id number] 5:47:02 PM Ordering Physician: Brunilda Luque Final Report: INDICATION: heart palpitations/chest pressure/svt/sob TECHNIQUE: Portable AP chest film submitted. COMPARISON: None. FINDINGS: Heart size and pulmonary vasculature within normal limits. Lung mcintyre are clear. Breast implants. IMPRESSION: No active disease. Dictated by Errol Tabares MD @ 01/18/2018 5:50:40 PM Dictated by: Errol Tabares MD @ 01/18/2018 17:50:45 (Electronic Signature) Report Signed by Proxy. [facility] MEDICAL CENTERDidier
== END 2018-01-18 19:28 | disposition home or self-care (01) ==
LOC: MW.ED 16:55
DX: E86.0 Dehydration (principal); F41.8 Other specified anxiety disorders; F10.20 Alcohol dependence, uncomplicated; Z88.0 Allergy status to penicillin; Z91.048 Other nonmedicinal substance allergy status; Z88.2 Allergy status to sulfonamides; I10 Essential (primary) hypertension; J45.909 Unspecified asthma, uncomplicated
CPT/HCPCS: 36415; 71045; 80053; 81001; 82550; 83690; 84484; 85025; 93005; 96361; 96374; 99285; A9270; J2060; J7040; 99283

== ENCOUNTER 2019-10-27 16:10 | Emergency (ER) | payer SELFPAY | END 2019-10-27 17:17 | disposition home or self-care (01) | LOC: MW.ED 16:10 | DX: Z53.21 Procedure and treatment not carried out due to patient leaving prior to being seen by health care provider (principal) ==